=== PATIENT | male | born 1975 | race Caucasian/White ===

== ENCOUNTER → 2020-10-04 | Outpatient (CLI) | payer OTHER ==
[~2020-10-04] MED LIST: BENTYL 20MG TAB20 MG PO; MECLIZINE HCL12.5 MG PO; PROTONIX 40 MG40 M1 PO; STRIVERDI RESPIM4 GM INH; VENTOLIN HFA 66.7 GM INH; ZOFRAN4 MG PO
[2020-10-04 11:01] LABS: HEMOGLOBIN 17.3 gm/dl (14.0-17.5); RED BLOOD COUNT 5.32 M/UL (4.20-5.50); WHITE BLOOD COUNT 9.3 K/UL (4.5-11.0)
[2020-10-04 11:22] LABS: BUN/CREATININE RATIO 19 (0-10)
== END ==
LOC: LAB 10:20
PROVIDERS: Family Medicine
DX: E78.2 Mixed hyperlipidemia (principal); K21.9 Gastro-esophageal reflux disease without esophagitis; R00.2 Palpitations; Z79.899 Other long term (current) drug therapy
CPT/HCPCS: 36415; 80053; 80061; 82607; 83735; 84443; 85027

== ENCOUNTER 2020-10-09 14:45 | Inpatient (IN) | payer OTHER ==
[~2020-10-09] VITALS: Ht 188 cm; Wt 77.1 kg
[~2020-10-09 14:45] MED LIST changes: -MECLIZINE HCL12.5 MG PO; -PROTONIX 40 MG40 M1 PO; -STRIVERDI RESPIM4 GM INH; -VENTOLIN HFA 66.7 GM INH
[2020-10-09 15:30] LABS: HEMOGLOBIN 17.7 gm/dl (14.0-17.5); RED BLOOD COUNT 5.29 M/UL (4.20-5.50); WHITE BLOOD COUNT 12.1 K/UL (4.5-11.0)
[2020-10-09 15:58] LABS: BUN/CREATININE RATIO 17 (0-10)
[2020-10-09] MEDS ORDERED: VENTOLIN HFA 66.7 GM INH (18:09)
[2020-10-09] MEDS ORDERED: STRIVERDI RESPIM4 GM INH (18:12)
[2020-10-09] MEDS ORDERED: MECLIZINE HCL12.5 MG PO (18:12)
[2020-10-09] MEDS ORDERED: PROTONIX 40 MG40 M1 PO (18:13)
[2020-10-10 02:57] LABS: HEMOGLOBIN 16.9 gm/dl (14.0-17.5); RED BLOOD COUNT 5.2 M/UL (4.20-5.50); WHITE BLOOD COUNT 10.6 K/UL (4.5-11.0)
[2020-10-10 03:19] LABS: BUN/CREATININE RATIO 20 (0-10)
--- NOTE | 2020-10-10 18:20 | NUR ---
PT WAS THROWING THINGS IN THE ROOM WHEN I APPROACHED THE PATIENT TO ASK HIM WHAT WAS WRONG. THE PATIENT THEN STATED THAT HE WAS MAD THAT THERE WAS NOT ANY CHEESE ON HIS BURGER AND THAT HE WAS UPSET THAT HE COULDNT GO DOWN TO SMOKE. I LET HIM KNOW THAT HE WAS NOT ALLOWED TO SMOKE ON THE PROPERTY AND THAT HE WAS NOT ABLE TO LEAVE THE ROOM WHILE ON A CARTIZEM DRIP. THE PATIENT THEN TOLD ME HE WAS GOING TO LEAVE SO I CALLED THE DOCTOR AND SINCE HE WAS IN HIS RIGHT MIND AND COMPLETELY [id number] THAT HE COULD GO HOME. THE PATIENT THEN SAID HE WOULD WAIT ON THE DOCTOR AND THAT HE HAD A FEW QUESTIONS FOR HER. WE WAITED FOR DOCTOR TAVARES TO TALK TO THE PATIENT. THE PATIENT THEN WAS YELLING AT HER AND SHE CHANGED HIM TO A REGULAR DIET. THE PATIENT WAS WAS OKAY FOR A MINUTE. I WAS CONCERNED ABOUT THE PATIENT BEING VIOLENT SO I CALLED SECURITY TO MAKE SURE WE WERE COVERED IF WE NEEDED TO BE. ONCE HE SEEN THEM HE GOT MAD AND TOLD US THAT HE WAS LEAVING. HE WAS UNHOOKED AND GOT HIS IV TAKEN OUT AND LEFT THE FACILITY. THE PATIENT WAS STILL ON CARTIZEM BEFORE HE LEFT WITH A HEART RATE FOR 165 AND STILL IN AFLUTTER. THE PATIENT WAS TOLD THE RISK IF HE LEFT.
--- NOTE | 2020-10-10 18:46 | NUR ---
IRIS WAS COMPLETED FOR THE PATIENT LEAVING AMA.
== END 2020-10-10 18:13 | disposition left against medical advice (07) | DRG 310 ==
LOC: ER1 14:45 → CDU 16:46 → PROG CARE 18:00
PROVIDERS: Family Medicine; Physician Assistant; ADMIT Internal Medicine
DX: I48.92 Unspecified atrial flutter (principal); F17.210 Nicotine dependence, cigarettes, uncomplicated; Z20.822 Contact with and (suspected) exposure to COVID-19; J44.9 Chronic obstructive pulmonary disease, unspecified; Z85.6 Personal history of leukemia; R55 Syncope and collapse; Z82.49 Family history of ischemic heart disease and other diseases of the circulatory system; Z80.1 Family history of malignant neoplasm of trachea, bronchus and lung; Z83.3 Family history of diabetes mellitus; Z56.0 Unemployment, unspecified; Z88.5 Allergy status to narcotic agent; Z88.8 Allergy status to other drugs, medicaments and biological substances; Z91.041 Radiographic dye allergy status; Z79.899 Other long term (current) drug therapy; I45.10 Unspecified right bundle-branch block; S22.41XD Multiple fractures of ribs, right side, subsequent encounter for fracture with routine healing
CPT/HCPCS: ECHO; 36415; 71045; 80048; 80053; 82550; 82553; 82962; 83874; 84439; 84443; 84484; 85025; 93005; 93306; 96374; 99285; J1650; J7030; J7040; U0002

== ENCOUNTER → 2021-02-21 | Outpatient (CLI) | payer OTHER ==
[~2021-02-21] MED LIST changes: +MECLIZINE HCL12.5 MG PO; +PROTONIX 40 MG40 M1 PO; +STRIVERDI RESPIM4 GM INH; +VENTOLIN HFA 66.7 GM INH
[2021-02-21 10:11] LABS: HEMOGLOBIN 17.6 gm/dl (14.0-17.5); RED BLOOD COUNT 5.29 M/UL (4.20-5.50)
[2021-02-21 10:36] LABS: BUN/CREATININE RATIO 19 (0-10)
== END ==
LOC: LAB 08:59
PROVIDERS: Family Medicine
DX: M79.651 Pain in right thigh (principal); K21.9 Gastro-esophageal reflux disease without esophagitis; E78.2 Mixed hyperlipidemia; Z79.899 Other long term (current) drug therapy
CPT/HCPCS: 36415; 73552; 80053; 80061; 82607; 83735; 85027

== ENCOUNTER → 2021-05-13 | Day surgery (SDC) | payer OTHER ==
[~2021-05-13] MED LIST changes: +ASPIRIN81 MG PO; +CRESTOR 10 MG T10 MG PO; +KENALOG 0.5% CR15 GM EXT; +PROPAFENONE HC300 MG PO; +VENTOLIN/PROVE0.5 ML INH
== END | disposition home or self-care (01) ==
LOC: OR 05:29
DX: K92.1 Melena (principal); K57.30 Diverticulosis of large intestine without perforation or abscess without bleeding; K64.9 Unspecified hemorrhoids; K21.9 Gastro-esophageal reflux disease without esophagitis; E78.2 Mixed hyperlipidemia; J44.9 Chronic obstructive pulmonary disease, unspecified; C95.90 Leukemia, unspecified not having achieved remission; F41.9 Anxiety disorder, unspecified; Z87.891 Personal history of nicotine dependence; Z91.041 Radiographic dye allergy status; Z88.5 Allergy status to narcotic agent; Z88.8 Allergy status to other drugs, medicaments and biological substances; Z79.82 Long term (current) use of aspirin; Z79.899 Other long term (current) drug therapy
CPT/HCPCS: J2001; J2704; J3010; J7030

== ENCOUNTER → 2022-05-23 | Outpatient (CLI) | payer OTHER ==
[2022-05-23 17:30] LABS: HEMOGLOBIN 17.7 gm/dl (14.0-17.5); RED BLOOD COUNT 5.36 M/UL (4.20-5.50); WHITE BLOOD COUNT 12.4 K/UL (4.5-11.0)
[2022-05-23 17:56] LABS: BUN/CREATININE RATIO 18 (0-10)
== END ==
LOC: LAB 16:52
PROVIDERS: Nurse Practitioner Family
DX: R10.9 Unspecified abdominal pain (principal)
CPT/HCPCS: 36415; 80053; 85025